=== PATIENT | female | born 1955 | race Caucasian/White ===

== ENCOUNTER 2023-10-20 08:13 | Emergency (ER) | payer MEDICARE, OTHER ==
[2023-10-20 08:29] LABS: BASOPHILS PERCENT AUTO 0.9 % (0.1-1.3); EOSINOPHILS ABSOLUTE AUTO 0.53 K/uL (0.00-0.40); EOSINOPHILS PERCENT AUTO 4.9 % (0.0-5.4); HEMATOCRIT 46.7 % (34.3-46.0); HEMOGLOBIN 15.1 g/dL (11.2-15.5); IMMATURE GRAN ABSOLUTE AUTO 0.06 K/uL (0.00-0.23); IMMATURE GRAN PERCENT AUTO 0.6 % (0.0-0.7); LYMPHOCYTES ABSOLUTE AUTO 4.13 K/uL (0.8-3.3); MEAN CORPUSCULAR HEMOGLOBIN 28.7 pg (31.6-35.5); MEAN CORPUSCULAR HGB CONC 32.3 g/dL (31.6-35.5); MEAN CORPUSCULAR VOLUME 88.8 fL (81.4-99.0); MONOCYTES ABSOLUTE AUTO 1.22 K/uL (0.20-0.90); MONOCYTES PERCENT AUTO 11.2 % (3.3-12.6); NEUTROPHILS ABSOLUTE AUTO 4.84 K/uL (1.0-7.6); NEUTROPHILS PERCENT AUTO 44.4 % (40.0-78.1); PLATELET COUNT,PLT 405 K/uL (130-375); RED BLOOD CELL COUNT 5.26 M/uL (3.77-5.24); WHITE BLOOD CELL COUNT,WBC 10.9 K/uL (3.2-11.0)
[2023-10-20] MEDS ORDERED: Propofol 200 MG/20 ML SDV ONE (08:31)
[2023-10-20] MEDS ORDERED: Ketorolac 30 MG/ML SDV ONE (08:34)
[2023-10-20] MEDS: Sodium Chloride 0.9% 1,000 ML IV SCH (08:50)
[2023-10-20 08:55] LABS: ANION GAP 9.7 mmol/L (5.0-14.0); CALCIUM 9.2 mg/dL (8.5-10.1); CREATININE 1.2 mg/dL (0.6-1.0); EST CRCL DRUG DOSING (CG) 37.67 mL/min; POTASSIUM,K 4.4 mmol/L (3.6-5.2)
[2023-10-20 09:13] LABS: TROPONIN I HIGH SENSITIVITY 88.8 pg/mL (<=60.3)
[2023-10-20] MEDS ORDERED: Diltiazem 25 MG/5 ML SDV IVPUSH ONE (09:19)
== END 2023-10-20 11:37 | disposition home or self-care (01) ==
LOC: JP.ED 08:13
DX: I48.91 Unspecified atrial fibrillation (principal); Z79.899 Other long term (current) drug therapy; Z79.01 Long term (current) use of anticoagulants; Z88.8 Allergy status to other drugs, medicaments and biological substances; Z91.048 Other nonmedicinal substance allergy status
CPT/HCPCS: 36415; 71045; 71045-26; 80048; 84484; 85025; 92960; 93005; 93010; 96360; 99156; 99284; 99285-25; J1885; J2704; J7030